=== PATIENT | female | born 1940 | race Caucasian/White ===

== ENCOUNTER 2017-05-07 17:16 | Inpatient (IN) | payer MEDICARE, OTHER ==
[2017-05-07] VITALS (7 sets, daily range): BP systolic 150–184; BP diastolic 67–100; PULSE 98–111; RESP 16–20; TEMP 97.9–98; O2SAT 91–96
[~2017-05-07] VITALS: Ht 170.2 cm; Wt 86.5 kg
[~2017-05-07 17:16] MED LIST: BENA5TAB PO; LATA0.00 EACH EYE; LYRI150C PO; METF850T PO; PRAV40TA PO
--- NOTE | 2017-05-07 17:44 | PD ---
HPI Chief Complaint: Respiratory Symptoms Time Seen by Provider: 17:39 Travel History International Travel<30 days: No Contact w/Intl Traveler<30days: No Traveled to known affect area: No History of Present Illness HPI 76yo F with PMH of fibromyalgia, DM was sent here by GI Dr. Pathak for CXR to r/ o aspiration. Pt was having a colonoscopy and was told that they were suctioning her in her OR. She also has cough, sob after the surgery. Pt was given levaquin, solucortef, and albuterol treatment there. Pt denies any history of COPD or cig smoking. Said she had a cold 2 weeks ago but symptoms were improved. Denies any fever, chest pain, n/v, abdominal pain. PFSH Past Medical History Cancer: No Cardiovascular Problems: Yes (LEAKY HEART VALVE) Diabetes: Yes Diminished Hearing: No Fibromyalgia: Yes GERD: Yes Glaucoma: Yes Genitourinary: Yes (INSTITIAL CYSTITIS) Hepatitis: No Hiatal Hernia: Yes (GERD) Musculoskeletal: Yes (OSTEOPHOROSIS) Thyroid Disease: No ?: Not Past Surgical History Abdominal Surgery: Yes ("GERD SX") Appendectomy: Yes (POSSIBLY WITH HYSTERECTOMY) Cardiac Surgery: No Ear Surgery: No Endocrine Surgery: No Eye Surgery: Yes (DANDY EYE SX - MUSCLE SX ; LEFT EYE CATARACT SX) Genitourinary Surgery: No Gynecologic Surgery: Yes (D&C HYSTERECTOMY) Hysterectomy: Yes Oral Surgery: No Pacemaker: No Thoracic Surgery: No Other Surgery: Yes (TUMOR FROM SKULL AREA) Social History Alcohol Use: Yes (BEER OCCASIONALLY) Tobacco Use: No Substance Use: No Allergies-Medications (Allergen,Severity, Reaction): Coded Allergies: hydrocodone (Unverified Allergy, Severe, Tachycardia, 05/07/17) SEVERE TACHYCARDIA AND "JITTERY" FEELING ibandronate sodium (Unverified Adverse Reaction, Severe, VOMITS SEVERELY, 05/07/17) Reported Meds & Prescriptions Reported Meds & Active Scripts Active Reported Dorzolamide Opth Drops (Dorzolamide HCl) 2% Soln 1 Drop EACH EYE BID Latanoprost Opth Drops (Latanoprost) 0.005% Drops 1 Drop EACH EYE HS Refrigerate until opened. Januvia (Sitagliptin Phosphate) 100 Mg Tab 100 Mg PO DAILY Review of Systems Except as stated in HPI: all other systems reviewed are Neg Physical Exam Narrative GENERAL: 76yo F in mild distress. SKIN: Focused skin assessment warm/dry. HEAD: Atraumatic. Normocephalic. EYES: Pupils equal and round. No scleral icterus. No injection or drainage. ENT: No nasal bleeding or discharge. Mucous membranes pink and moist. NECK: Trachea midline. No JVD. CARDIOVASCULAR: Regular rate and rhythm. No murmur appreciated. RESPIRATORY: Bilateral crackles in lung bases. GASTROINTESTINAL: Abdomen soft, non-tender, nondistended. No rebound tenderness or guarding. MUSCULOSKELETAL: No obvious deformities. No clubbing. No cyanosis. No edema. NEUROLOGICAL: Awake and alert. No obvious cranial nerve deficits. Motor grossly within normal limits. Normal speech. PSYCHIATRIC: Appropriate mood and affect; insight and judgment normal. Data Data Last Documented VS Vital Signs Date Time Temp Pulse Resp B/P (MAP) Pulse Ox O2 Delivery O2 Flow Rate FiO2 05/07/17 19:00 111 18 150/67 (94) 93 Nasal Cannula 2.00 05/07/17 17:21 97.9 Orders Orders Complete Blood Count With Diff (05/07/17 17:39) Basic Metabolic Panel (Bmp) (05/07/17 17:39) Troponin I (05/07/17 17:39) Chest, Single Ap (05/07/17 17:39) B-Type Natriuretic Peptide (05/07/17 17:44) Arterial Blood Gas (Abg) (05/07/17 ) Albuterol-Ipratropium Neb (Duoneb Neb) (05/07/17 18:30) Sodium Chlorid 0.9% 500 Ml Inj (Ns 500 M (05/07/17 19:00) Ceftriaxone Inj (Rocephin Inj) (05/07/17 19:00) Azithromycin (Zithromax) (05/07/17 19:00) Admit Order (Ed Use Only) (05/07/17 19:24) Labs Laboratory Tests Test 05/07/17 18:00 05/07/17 18:44 White Blood Count 20.3 TH/MM3 Red Blood Count 5.18 MIL/MM3 Hemoglobin 14.9 GM/DL Hematocrit 45.3 % Mean Corpuscular Volume 87.5 FL Mean Corpuscular Hemoglobin 28.7 PG Mean Corpuscular Hemoglobin Concent 32.8 % Red Cell Distribution Width 12.5 % Platelet Count 329 TH/MM3 Mean Platelet Volume 7.9 FL Neutrophils (%) (Auto) 88.0 % Lymphocytes (%) (Auto) 5.5 % Monocytes (%) (Auto) 3.0 % Eosinophils (%) (Auto) 0.2 % Basophils (%) (Auto) 3.3 % Neutrophils # (Auto) 17.9 TH/MM3 Lymphocytes # (Auto) 1.1 TH/MM3 Monocytes # (Auto) 0.6 TH/MM3 Eosinophils # (Auto) 0.0 TH/MM3 Basophils # (Auto) 0.7 TH/MM3 CBC Comment DIFF FINAL Differential Comment Blood Urea Nitrogen 13 MG/DL Creatinine 0.73 MG/DL Random Glucose 186 MG/DL Calcium Level 8.3 MG/DL Sodium Level 137 MEQ/L Potassium Level 3.5 MEQ/L Chloride Level 103 MEQ/L Carbon Dioxide Level 22.9 MEQ/L Anion Gap 11 MEQ/L Estimat Glomerular Filtration Rate 77 ML/MIN Troponin I LESS THAN 0.02 NG/ML B-Type Natriuretic Peptide 3 PG/ML Blood Gas Puncture Site LT RADIAL Blood Gas Patient Temperature 98.6 Blood Gas HCO3 21 mmol/L Blood Gas Base Excess -2.7 mmol/L Blood Gas Oxygen Saturation 88 % Arterial Blood pH 7.41 Arterial Blood Partial Pressure CO2 35 mmHG Arterial Blood Partial Pressure O2 65 mmHG Arterial Blood Oxygen Content 18.0 Vol % Arterial Blood Carboxyhemoglobin 1.4 % Arterial Blood Methemoglobin 1.2 % Blood Gas Hemoglobin 14.5 G/DL Oxygen Delivery Device ROOM AIR Blood Gas Inspired Oxygen 21 % [facility] Medical Decision Making Medical Screen Exam Complete: Yes Emergency Medical Condition: Yes Differential Diagnosis Aspiration pneumonia vs. COPD vs. CHF vs. ACS Narrative Course 76yo F with c/o sob and cough after colonoscopy today. Said they were suctioning and was concern about aspiration. Pt is hypoxic at 89-90% on RA and said she does not use any oxygen at home. Does not have COPD but did get a pump when she had a cold 2 weeks ago. O2 sat improved to 94% on 2L NC. Crackles in bilateral lung bases. CXR shows clear lungs. Labs reviewed, leukocytosis at 20.3. BNP is 3. Troponin negative. Pt is also with productive cough and mild tachycardia, will give ceftriaxone and azithromycin. ABG showed O2 sat 88% on RA. This is new for patient. Discussed with Dr. Miller's PA and accepted to her service. Diagnosis Primary Impression: Aspiration pneumonia Qualified Codes: J69.0 - Pneumonitis due to inhalation of food and vomit Admitting Information Admitting Physician Requests: Observation Gricelda Childs DO May 07, 2017 17:44
[2017-05-07] MEDS ORDERED: LATA0.002 EACH EYE (17:50)
[2017-05-07] MEDS ORDERED: SITA1TAB2 PO (17:50)
[2017-05-07] MEDS ORDERED: DORZ2SOL EACH EYE (18:08)
[2017-05-07 18:18] LABS: AUTOMATED NEUTROPHIL # 17.9 TH/MM3 (1.8-7.7); BASOPHIL # 0.7 TH/MM3 (0-0.2); BASOPHIL % 3.3 % (0.0-2.0); EOSINOPHIL % 0.2 % (0.0-4.0); HEMATOCRIT 45.3 % (35.0-46.0); HEMOGLOBIN 14.9 GM/DL (11.6-15.3); LYMPH % 5.5 % (9.0-44.0); LYMPHOCYTE # 1.1 TH/MM3 (1.0-4.8); MEAN CELL VOLUME 87.5 FL (80.0-100.0); MEAN CORPUSCULAR HEMOGLOBIN 28.7 PG (27.0-34.0); MEAN CORPUSCULAR HGB CONC 32.8 % (32.0-36.0); MEAN PLATELET VOLUME 7.9 FL (7.0-11.0); MONOCYTE # 0.6 TH/MM3 (0-0.9); PLATELET COUNT 329 TH/MM3 (150-450); RED BLOOD COUNT 5.18 MIL/MM3 (4.00-5.30); RED CELL DISTRIBUTION WIDTH 12.5 % (11.6-17.2); WHITE BLOOD COUNT 20.3 TH/MM3 (4.0-11.0)
--- NOTE | 2017-05-07 18:22 | RADRPT ---
EXAM DATE/TIME: 05/07/2017 18:06 [place] COMPARISON: No previous studies available for comparison. INDICATIONS : Chest congestion, difficulty breathing post colonoscopy this morning MEDICAL HISTORY : None. SURGICAL HISTORY : None. ENCOUNTER: Initial ACUITY: 1 day PAIN SCORE: 0/10 LOCATION: Bilateral chest FINDINGS: A single view of the chest demonstrates the lungs to be symmetrically aerated without evidence of mas s, infiltrate or effusion. The cardiomediastinal contours are unremarkable. Mild elevation of the l eft hemidiaphragm. Moderate right lower thoracic scoliosis convex to the right. CONCLUSION: The lungs are clear. Harman Workman MD on May 07, 2017 at 18:19 Board Certified Radiologist. This report was verified electronically.
[2017-05-07 18:25] LABS: CHLORIDE 103 MEQ/L (98-107); SODIUM (NA) 137 MEQ/L (136-145)
[2017-05-07 18:28] LABS: BICARBONATE 22.9 MEQ/L (21.0-32.0); BLOOD UREA NITROGEN 13 MG/DL (7-18); CALCIUM 8.3 MG/DL (8.5-10.1); GLUCOSE,RANDOM 186 MG/DL (74-106)
[2017-05-07 18:32] LABS: CREATININE 0.73 MG/DL (0.50-1.00); GLOMERULAR FILTRATION RATE 77 ML/MIN (>89)
[2017-05-07 18:36] LABS: TROPONIN I LESS THAN 0.02 NG/ML (0.02-0.05)
[2017-05-07] MEDS: RESP: ALBUTEROL 2.5 MG/IPRATROPIUM 0.5 MG NEB (SCH) INH ×2 (18:43→21:48)
[2017-05-07] MEDS ORDERED: cefTRIAXone INJ 1,000 MG in SODIUM CHLORIDE 0.9% INJ 100 ML IV ONE (19:00)
[2017-05-07] MEDS ORDERED: AZITHROMYCIN 250 MG TAB PO ONE (19:00)
[2017-05-07] MEDS ORDERED: SODIUM CHLORID 0.9% 500 ML INJ 500 ML IV ONE (19:00)
[2017-05-07] MEDS ORDERED: SODIUM CHLORIDE 0.9% FLUSH 10 ML FLUSH IV FLUSH PRN (19:30)
[2017-05-07] MEDS ORDERED: RESP: ALBUTEROL 2.5 MG/IPRATROPIUM 0.5 MG NEB (PRN) INH (19:30)
[2017-05-07] MEDS ORDERED: DEXTROSE 50% IN WATER 50 ML VIAL(D50) IV PUSH PRN (19:30)
[2017-05-07] MEDS ORDERED: GLUCAGON 1 MG/ML VIAL OTHER PRN (19:30)
[2017-05-07] MEDS: INSULIN ASPART SUPPLEMENTAL SCALE SQ SCH (21:00)
[2017-05-07] MEDS: AMPICILLIN-SULBACTAM INJ 3 GM in SODIUM CHLORIDE 0.9% INJ 100 ML IV SCH (22:03)
[2017-05-07] MEDS: SODIUM CHLORIDE 0.9% FLUSH 10 ML FLUSH IV FLUSH SCH (22:03)
[2017-05-07] MEDS: ENOXAPARIN SODIUM 40 MG/0.4 ML SYRINGE SQ SCH (22:04)
[2017-05-07] MEDS: DORZOLAMIDE 2% OPTH SOLN 200 DROP/10 ML BTLO EACH EYE SCH (22:41)
[2017-05-07] MEDS: LATANOPROST 0.005% OPHT SOLN 2.5 ML BTL EACH EYE SCH (22:41)
[2017-05-08] VITALS (8 sets, daily range): BP systolic 129–143; BP diastolic 56–65; PULSE 82–110; RESP 18–20; TEMP 96.8–99.4; O2SAT 92–96
[2017-05-08] MEDS: AMPICILLIN-SULBACTAM INJ 3 GM in SODIUM CHLORIDE 0.9% INJ 100 ML IV SCH ×4 (03:49→21:08)
[2017-05-08] MEDS: RESP: ALBUTEROL 2.5 MG/IPRATROPIUM 0.5 MG NEB (SCH) INH ×4 (03:56→19:09)
[2017-05-08 07:56] LABS: AUTOMATED NEUTROPHIL # 13.5 TH/MM3 (1.8-7.7); BASOPHIL % 0.2 % (0.0-2.0); EOSINOPHIL % 0.2 % (0.0-4.0); HEMATOCRIT 38.2 % (35.0-46.0); HEMOGLOBIN 13.1 GM/DL (11.6-15.3); LYMPHOCYTE # 1.6 TH/MM3 (1.0-4.8); MEAN CELL VOLUME 87.3 FL (80.0-100.0); MEAN CORPUSCULAR HEMOGLOBIN 29.9 PG (27.0-34.0); MEAN CORPUSCULAR HGB CONC 34.2 % (32.0-36.0); MEAN PLATELET VOLUME 7.8 FL (7.0-11.0); MONO % 4.4 % (0.0-8.0); MONOCYTE # 0.7 TH/MM3 (0-0.9); NEUT % 85.2 % (16.0-70.0); PLATELET COUNT 284 TH/MM3 (150-450); RED BLOOD COUNT 4.38 MIL/MM3 (4.00-5.30); WHITE BLOOD COUNT 15.8 TH/MM3 (4.0-11.0)
[2017-05-08 07:58] LABS: BICARBONATE 26.6 MEQ/L (21.0-32.0); CALCIUM 7.9 MG/DL (8.5-10.1)
[2017-05-08 08:02] LABS: CREATININE 0.86 MG/DL (0.50-1.00)
[2017-05-08] MEDS: INSULIN ASPART SUPPLEMENTAL SCALE SQ SCH ×4 (09:36→21:00)
[2017-05-08] MEDS: DORZOLAMIDE 2% OPTH SOLN 200 DROP/10 ML BTLO EACH EYE SCH ×2 (09:49→21:09)
[2017-05-08] MEDS: SODIUM CHLORIDE 0.9% FLUSH 10 ML FLUSH IV FLUSH SCH ×2 (09:52→21:09)
--- NOTE | 2017-05-08 12:06 | HHI.HP ---
HPI Service [facility] Primary Care Physician Brian Faria, DO Admission Diagnosis Possible aspiration pneumonia, hypoxemia Diagnoses: Chief Complaint: Aspiration Travel History International Travel<30 Days: No Contact w/Intl Traveler <30 Da: No Traveled to Known Affected Are: No History of Present Illness 76 years old female with history of fibromyalgia diabetes mellitus who followed by her GI doctor Dr. Echevarria , was having a colonoscopy during which or right after she was found to have extensive oral secretion there were trying to suction in the OR however patient went into coughing spells short of breath and hypoxia. Patient told me when she was leaving the operating room her face her left shoulder was full of snot and secretion. Patient brought to the hospital with suspect of aspiration started on breathing treatment and oxygen her oxygenation went below 88. Patient reported having cold symptoms 2 weeks ago however denied any fever chest pain abdominal pain dysuria urgency or frequency. She is looks to be stable on nasal cannula right now, chest x-ray in the ED showed normal lungs. Patient started on Unasyn after given a dose of Levaquin in ED Review of Systems All systems reviewed and was positive for what is mentioned in history of present illness otherwise negative Past Family Social History Past Medical History History of leaky heart valve assuming MDP Diabetes GERD Glaucoma Cystitis Osteoporosis Hysterectomy Cataract left eye Past Surgical History As above Allergies: Coded Allergies: hydrocodone (Unverified Allergy, Severe, Tachycardia, 05/07/17) SEVERE TACHYCARDIA AND "JITTERY" FEELING ibandronate sodium (Unverified Adverse Reaction, Severe, VOMITS SEVERELY, 05/07/17) Family History Review with the patient,not aware of significant medical history related to her problem runs in the family Social History Drinks beer occasionally no tobacco or Physical Exam Vital Signs Vital Signs Date Time Temp Pulse Resp B/P (MAP) Pulse Ox O2 Delivery O2 Flow Rate FiO2 05/08/17 07:50 96.8 96 20 129/56 (80) 93 05/08/17 07:43 95 Nasal Cannula 2.00 05/08/17 03:56 96 Nasal Cannula 2.00 05/08/17 00:00 98.5 110 20 143/65 (91) 92 05/07/17 21:48 93 Nasal Cannula 2.50 05/07/17 21:00 92 Nasal Cannula 2.50 05/07/17 20:50 98.0 107 20 164/74 (104) 92 05/07/17 20:35 107 18 168/73 (104) 92 Nasal Cannula 3.00 05/07/17 19:00 111 18 150/67 (94) 93 Nasal Cannula 2.00 05/07/17 19:00 111 18 93 Nasal Cannula 2.00 05/07/17 18:45 96 Nasal Cannula 2.00 05/07/17 18:07 100 16 184/100 (128) 95 Nasal Cannula 2.00 05/07/17 17:44 99 16 92 Room Air 05/07/17 17:21 97.9 98 18 160/74 (102) 91 Physical Exam GENERAL: This is a well-nourished, well-developed patient, in no apparent distress. SKIN: No rashes, warm and dry HEAD: Atraumatic. Normocephalic. EYES: Pupils equal round and reactive. Extraocular motions intact. No scleral icterus. ENT: Nose without bleeding, or drainage, Airway patent. NECK: Trachea midline. Supple CARDIOVASCULAR: Regular rate and rhythm without murmurs, gallops, or rubs. RESPIRATORY: Bilateral basilar crackles with few wheezes bilaterally GASTROINTESTINAL: Abdomen soft, non-tender, nondistended. Positive bowel sounds MUSCULOSKELETAL: Extremities without clubbing, cyanosis, or edema. Pedal pulses appreciated NEUROLOGICAL: Awake and alert. Moves all extremity. Normal speech.no focal neurological deficit Laboratory Laboratory Tests Test 05/07/17 18:00 05/07/17 18:44 05/08/17 06:50 White Blood Count 20.3 15.8 Red Blood Count 5.18 4.38 Hemoglobin 14.9 13.1 Hematocrit 45.3 38.2 Mean Corpuscular Volume 87.5 87.3 Mean Corpuscular Hemoglobin 28.7 29.9 Mean Corpuscular Hemoglobin Concent 32.8 34.2 Red Cell Distribution Width 12.5 13.0 Platelet Count 329 284 Mean Platelet Volume 7.9 7.8 Neutrophils (%) (Auto) 88.0 85.2 Lymphocytes (%) (Auto) 5.5 10.0 Monocytes (%) (Auto) 3.0 4.4 Eosinophils (%) (Auto) 0.2 0.2 Basophils (%) (Auto) 3.3 0.2 Neutrophils # (Auto) 17.9 13.5 Lymphocytes # (Auto) 1.1 1.6 Monocytes # (Auto) 0.6 0.7 Eosinophils # (Auto) 0.0 0.0 Basophils # (Auto) 0.7 0.0 CBC Comment DIFF FINAL DIFF FINAL Differential Comment Blood Urea Nitrogen 13 10 Creatinine 0.73 0.86 Random Glucose 186 211 Calcium Level 8.3 7.9 Sodium Level 137 141 Potassium Level 3.5 3.3 Chloride Level 103 107 Carbon Dioxide Level 22.9 26.6 Anion Gap 11 7 Estimat Glomerular Filtration Rate 77 64 Troponin I LESS THAN 0.02 B-Type Natriuretic Peptide 3 Blood Gas Puncture Site LT RADIAL Blood Gas Patient Temperature 98.6 Blood Gas HCO3 21 Blood Gas Base Excess -2.7 Blood Gas Oxygen Saturation 88 Arterial Blood pH 7.41 Arterial Blood Partial Pressure CO2 35 Arterial Blood Partial Pressure O2 65 Arterial Blood Oxygen Content 18.0 Arterial Blood Carboxyhemoglobin 1.4 Arterial Blood Methemoglobin 1.2 Blood Gas Hemoglobin 14.5 Oxygen Delivery Device ROOM AIR Blood Gas Inspired Oxygen 21 Result Diagram: 05/08/17 0650 05/08/17 0650 Imaging Last Impressions Chest X-Ray 05/07/17 4349 Signed Impressions: Service Date/Time: Sunday, May 07, 2017 18:06 - CONCLUSION: The lungs are clear. MD Peter Cash VTE Risk Assessment Caprini VTE Risk Assessment: Mod/High Risk (score >= 2) Caprini Risk Assessment Model Point Value = 1 Point Value = 2 Point Value = 3 Point Value = 5 Age 41-60 Minor surgery BMI > 25 kg/m2 Swollen legs Varicose veins or History of unexplained or recurrent spontaneous Oral contraceptives or hormone replacement Sepsis (< 1 month) Serious lung disease, including pneumonia (< 1 month) Abnormal pulmonary function Acute myocardial infarction Congestive heart failure (< 1 month) History of inflammatory bowel disease Medical patient at bed rest Age 61-74 Arthroscopic surgery Major open surgery (> 45 min) Laparoscopic surgery (> 45 min) Malignancy Confined to bed (> 72 hours) Immobilizing plaster cast Central venous access Age >= 75 History of VTE Family history of VTE Factor V Leiden Prothrombin [id number] Lupus anticoagulant Anticardiolipin antibodies Elevated serum homocysteine Heparin-induced thrombocytopenia Other congenital or acquired thrombophilia Stroke (< 1 month) Elective arthroplasty Hip, pelvis, or leg fracture Acute spinal cord injury (< 1 month) Prophylaxis Regimen Total Risk Factor Score Risk Level Prophylaxis Regimen 0-1 Low Early ambulation 2 Moderate Order ONE of the following: *Sequential Compression Device (SCD) *Heparin 5000 units SQ BID 3-4 Higher Order ONE of the following medications: *Heparin 5000 units SQ TID *Enoxaparin/Lovenox 40 mg SQ daily (WT < 150 kg, CrCl > 30 mL/min) *Enoxaparin/Lovenox 30 mg SQ daily (WT < 150 kg, CrCl > 10-29 mL/min) *Enoxaparin/Lovenox 30 mg SQ BID (WT < 150 kg, CrCl > 30 mL/min) AND/OR *Sequential Compression Device (SCD) 5 or more Highest Order ONE of the following medications: *Heparin 5000 units SQ TID (Preferred with Epidurals) *Enoxaparin/Lovenox 40 mg SQ daily (WT < 150 kg, CrCl > 30 mL/min) *Enoxaparin/Lovenox 30 mg SQ daily (WT < 150 kg, CrCl > 10-29 mL/min) *Enoxaparin/Lovenox 30 mg SQ BID (WT < 150 kg, CrCl > 30 mL/min) AND *Sequential Compression Device (SCD) Assessment and Plan Assessment and Plan 76 years old female with history of diabetes mellitus who was under colonoscopy procedure transferred to the hospital after she had Acute aspiration episode with hypoxia Chest x-ray personally reviewed by me and it was cleared Severe leukocytosis with 20,000 yesterday dropped to 15,000 today could be stress reaction H/O Diabetes mellitus GERD, osteoporosis, glaucoma DT prophylaxis with SCD and Lovenox Plan: Admit for observation Telemetry Patient was given a dose of Rocephin and Zithromax, will start on Unasyn Monitor her respiratory symptoms and her oxygenation Monitor WBC Continue with oxygen, DuoNeb, patient reported feeling better with breathing treatment Solu-Medrol was given will continue Discussed Condition With Patient Angelo Quintanilla MD May 08, 2017 12:06
[2017-05-08] MEDS: LATANOPROST 0.005% OPHT SOLN 2.5 ML BTL EACH EYE SCH (21:09)
[2017-05-08] MEDS: ENOXAPARIN SODIUM 40 MG/0.4 ML SYRINGE SQ SCH (21:10)
[2017-05-09] VITALS: BP 120/60; PULSE 88; RESP 16; TEMP 97.8; O2SAT 94
[2017-05-09] MEDS: AMPICILLIN-SULBACTAM INJ 3 GM in SODIUM CHLORIDE 0.9% INJ 100 ML IV SCH ×4 (03:25→20:40)
[2017-05-09 07:18] LABS: AUTOMATED NEUTROPHIL # 7.1 TH/MM3 (1.8-7.7); BASOPHIL # 0.1 TH/MM3 (0-0.2); BASOPHIL % 0.6 % (0.0-2.0); EOSINOPHIL # 0.3 TH/MM3 (0-0.4); EOSINOPHIL % 3.1 % (0.0-4.0); HEMATOCRIT 36.2 % (35.0-46.0); HEMOGLOBIN 12.1 GM/DL (11.6-15.3); LYMPH % 13.5 % (9.0-44.0); LYMPHOCYTE # 1.3 TH/MM3 (1.0-4.8); MEAN CELL VOLUME 88.3 FL (80.0-100.0); MEAN CORPUSCULAR HEMOGLOBIN 29.5 PG (27.0-34.0); MEAN CORPUSCULAR HGB CONC 33.3 % (32.0-36.0); MEAN PLATELET VOLUME 7.6 FL (7.0-11.0); MONO % 5.5 % (0.0-8.0); MONOCYTE # 0.5 TH/MM3 (0-0.9); NEUT % 77.3 % (16.0-70.0); PLATELET COUNT 262 TH/MM3 (150-450); RED CELL DISTRIBUTION WIDTH 13.4 % (11.6-17.2); WHITE BLOOD COUNT 9.3 TH/MM3 (4.0-11.0)
[2017-05-09] MEDS: RESP: ALBUTEROL 2.5 MG/IPRATROPIUM 0.5 MG NEB (SCH) INH ×3 (07:47→20:01)
[2017-05-09 07:49] VITALS: O2SAT 94
[2017-05-09 08:00] VITALS: BP 149/75; PULSE 92; RESP 20; TEMP 97.3; O2SAT 93
[2017-05-09] MEDS: INSULIN ASPART SUPPLEMENTAL SCALE SQ SCH ×4 (08:00→20:41)
[2017-05-09] MEDS: DORZOLAMIDE 2% OPTH SOLN 200 DROP/10 ML BTLO EACH EYE SCH ×2 (08:41→20:40)
[2017-05-09] MEDS: SODIUM CHLORIDE 0.9% FLUSH 10 ML FLUSH IV FLUSH SCH ×2 (08:43→20:40)
--- NOTE | 2017-05-09 10:54 | HHI.PR ---
Subjective Remarks RN denies any deterioration since last night except for a sustained wet cough. Patient herself says that she feels like her voice hoarseness is worse today and she is very short of breath when speaking. Otherwise will not conversing, she is not that short of breath. She denies having any previous thyroid issues or any neck surgeries in the past. Objective Vital Signs Date Time Temp Pulse Resp B/P (MAP) Pulse Ox O2 Delivery O2 Flow Rate FiO2 05/09/17 08:30 Nasal Cannula 2.00 05/09/17 08:00 97.3 92 20 149/75 (99) 93 05/09/17 00:00 97.8 88 16 120/60 (80) 94 05/08/17 20:00 99.4 104 20 133/60 (84) 92 05/08/17 20:00 92 Nasal Cannula 2.00 05/08/17 19:09 93 Nasal Cannula 2.00 05/08/17 16:38 97.7 102 18 136/63 (87) 92 05/08/17 11:00 97.3 82 20 129/59 (82) 95 I/O 05/08/17 05/08/17 05/08/17 05/09/17 05/09/17 05/09/17 07:00 15:00 23:00 07:00 15:00 23:00 Intake Total 100 ml 200 ml 1784 ml 340 ml Balance 100 ml 200 ml 1784 ml 340 ml Intake Oral 1684 ml 240 ml IV Total 100 ml 200 ml 100 ml 100 ml # Voids 5 5 # Bowel Movements 1 0 Result Diagram: 05/09/17 0647 05/08/17 0650 Objective Remarks Mild crackles in left lung base anteriorly, unlabored breathing, has very obvious voice hoarseness and conversive dyspnea, no significant dyspnea upon rest A/P Assessment and Plan 76 years old female with history of diabetes mellitus who was under colonoscopy procedure transferred to the hospital after she had sudden onset dyspnea and suspected aspiration Suspected aspiration episode with hypoxia following colonoscopy procedure -Chest x-rays was negative upon admission. Leukocytosis has been normalized. Continue Unasyn for now Worsening voice hoarseness -We will consult ENT to evaluate vocal cords - starting PPI and consulting ST for swallow Micheal Conde MD May 09, 2017 10:53
[2017-05-09] MEDS: PANTOPRAZOLE SOD 40 MG DELAYED RELEASE TAB PO SCH (11:46)
[2017-05-09 12:00] VITALS: BP 154/74; PULSE 91; RESP 20; TEMP 98.7; O2SAT 94
--- NOTE | 2017-05-09 17:20 | PD.CONS ---
History of Present Illness Service ENT Consult Requested By Reason for Consult Hoarseness Primary Care Physician Brian Faria DO Diagnoses: History of Present Illness 76 year old female post colonoscopy apparently aspirated. She is hoarse. She has been coughing and is being treated for pneumonia. Review of Systems Ears, nose, mouth, throat: COMPLAINS OF: Hoarseness, DENIES: Nasal discharge, Throat pain, Odynophagia Past Family Social History Allergies: Coded Allergies: hydrocodone (Unverified Allergy, Severe, Tachycardia, 05/07/17) SEVERE TACHYCARDIA AND "JITTERY" FEELING ibandronate sodium (Unverified Adverse Reaction, Severe, VOMITS SEVERELY, 05/07/17) Physical Exam Vital Signs Vital Signs Date Time Temp Pulse Resp B/P (MAP) Pulse Ox O2 Delivery O2 Flow Rate FiO2 05/09/17 12:00 98.7 91 20 154/74 (100) 94 05/09/17 08:30 Nasal Cannula 2.00 05/09/17 08:00 97.3 92 20 149/75 (99) 93 05/09/17 07:49 94 Nasal Cannula 2.00 05/09/17 00:00 97.8 88 16 120/60 (80) 94 05/08/17 20:00 99.4 104 20 133/60 (84) 92 05/08/17 20:00 92 Nasal Cannula 2.00 05/08/17 19:09 93 Nasal Cannula 2.00 Physical Exam GENERAL: This is a well-nourished, well-developed patient, in no apparent distress. SKIN: No rashes, ecchymoses or lesions. Cool and dry. HEAD: Atraumatic. Normocephalic. No temporal or scalp tenderness. EYES: Pupils equal round and reactive. Extraocular motions intact. No scleral icterus. No injection or drainage. ENT: Nose without bleeding, purulent drainage or septal hematoma. Throat without erythema, tonsillar hypertrophy or exudate. Uvula midline. Airway patent. NECK: Trachea midline. No JVD or lymphadenopathy. Supple, nontender, no meningeal signs. Fiberoptic laryngoscopy: Mild laryngeal edema. Vocal cords mobile. Palatal bruising suctioning likely. Laboratory Laboratory Tests Test 05/09/17 06:47 White Blood Count 9.3 Red Blood Count 4.10 Hemoglobin 12.1 Hematocrit 36.2 Mean Corpuscular Volume 88.3 Mean Corpuscular Hemoglobin 29.5 Mean Corpuscular Hemoglobin Concent 33.3 Red Cell Distribution Width 13.4 Platelet Count 262 Mean Platelet Volume 7.6 Neutrophils (%) (Auto) 77.3 Lymphocytes (%) (Auto) 13.5 Monocytes (%) (Auto) 5.5 Eosinophils (%) (Auto) 3.1 Basophils (%) (Auto) 0.6 Neutrophils # (Auto) 7.1 Lymphocytes # (Auto) 1.3 Monocytes # (Auto) 0.5 Eosinophils # (Auto) 0.3 Basophils # (Auto) 0.1 CBC Comment DIFF FINAL Differential Comment Result Diagram: 05/09/17 0647 05/08/17 0650 Assessment and Plan Assessment and Plan Laryngitis and hoarseness post aspiration, from acid contents, suctioning and cough. Patient reassured, it will be some time before she is better. Priority now is clearing pneumonia. I stressed inspiratory spirometer and cough. Request follow up at [facility] as an outpatient with Dr Rangel in the next few weeks to be sure she clears. Jayesh Rangel MD May 09, 2017 17:20
[2017-05-09 20:00] VITALS: BP 163/76; PULSE 103; RESP 18; TEMP 99.3; O2SAT 93
[2017-05-09 20:04] VITALS: O2SAT 94
[2017-05-09] MEDS: LATANOPROST 0.005% OPHT SOLN 2.5 ML BTL EACH EYE SCH (20:40)
[2017-05-09] MEDS: ENOXAPARIN SODIUM 40 MG/0.4 ML SYRINGE SQ SCH (20:41)
[2017-05-10] VITALS (11 sets, daily range): BP systolic 137–173; BP diastolic 70–78; PULSE 80–102; RESP 18–20; TEMP 97.2–99.3; O2SAT 93–98
[2017-05-10] MEDS: AMPICILLIN-SULBACTAM INJ 3 GM in SODIUM CHLORIDE 0.9% INJ 100 ML IV SCH ×4 (05:03→21:00)
[2017-05-10] MEDS: RESP: ALBUTEROL 2.5 MG/IPRATROPIUM 0.5 MG NEB (SCH) INH ×3 (07:39→20:05)
[2017-05-10] MEDS: INSULIN ASPART SUPPLEMENTAL SCALE SQ SCH ×4 (08:00→21:00)
[2017-05-10] MEDS: PANTOPRAZOLE SOD 40 MG DELAYED RELEASE TAB PO SCH (09:24)
[2017-05-10] MEDS: DORZOLAMIDE 2% OPTH SOLN 200 DROP/10 ML BTLO EACH EYE SCH ×2 (09:24→22:59)
[2017-05-10] MEDS: SODIUM CHLORIDE 0.9% FLUSH 10 ML FLUSH IV FLUSH SCH ×2 (09:24→22:58)
[2017-05-10] MEDS: LISINOPRIL 5 MG TAB PO SCH ×2 (10:00→10:31)
--- NOTE | 2017-05-10 10:04 | HHI.PR ---
Subjective Remarks Patient still coughing significantly, she reported light improvement in her breathing, she told me "I do not think I can go home unless I need to " We will check her home O2 while in test and if she passed wound and try to discharge home so she can follow-up as an outpatient otherwise we will keep her for 1 more day prednisone and antibiotic Objective Vitals Vital Signs Date Time Temp Pulse Resp B/P (MAP) Pulse Ox O2 Delivery O2 Flow Rate FiO2 05/10/17 07:32 95 Nasal Cannula 2.00 05/10/17 05:53 92 05/10/17 04:00 98.2 88 18 173/70 (104) 93 05/10/17 00:00 99.3 99 20 154/75 (101) 94 05/09/17 20:04 94 Nasal Cannula 2.00 05/09/17 20:00 99.3 103 18 163/76 (105) 93 05/09/17 19:00 Nasal Cannula 2.00 05/09/17 12:00 98.7 91 20 154/74 (100) 94 I/O 05/09/17 05/09/17 05/09/17 05/10/17 05/10/17 05/10/17 07:00 15:00 23:00 07:00 15:00 23:00 Intake Total 340 ml 100 ml 200 ml 680 ml Balance 340 ml 100 ml 200 ml 680 ml Intake Oral 240 ml 0 ml 480 ml IV Total 100 ml 100 ml 200 ml 200 ml # Voids 5 6 5 # Bowel Movements 0 0 Result Diagram: 05/09/17 0647 05/08/17 0650 Objective Remarks GENERAL: This is a well-nourished, well-developed patient, in no apparent distress. CARDIOVASCULAR: Regular rate and rhythm without murmurs, gallops, or rubs. RESPIRATORY: Significant bilateral basilar crackles with wheezes GASTROINTESTINAL: Abdomen soft, non-tender, nondistended. Normal active bowel sounds MUSCULOSKELETAL: Extremities without clubbing, cyanosis, or edema. NEURO: Alert & Oriented x4 to person, place, time, situation. Moves all ext x4 A/P Assessment and Plan 76 years old female with history of diabetes mellitus who was under colonoscopy procedure transferred to the hospital after she had sudden onset dyspnea and suspected aspiration Suspected aspiration episode with hypoxia following colonoscopy procedure -Chest x-rays was negative upon admission. Leukocytosis has been normalized. Continue Unasyn for now Laryngitis, worsening voice hoarseness -Appreciate ENT consultation, confirmed laryngitis due to acid secretion will take time to heal - starting PPI and consulting ST for swallow eval Hypertension: Patient is not on any antihypertensive medication will start low- dose 5 mg lisinopril and monitor blood pressure Diabetes mellitus: Hold sitagliptin, Accu-Chek with insulin sliding scale DVT prophylaxis with SCD and Lovenox Discharge Planning Today or tomorrow pending home O2 walking test Angelo Quintanilla MD May 10, 2017 10:04
[2017-05-10] MEDS ORDERED: LISI-519 PO (12:31)
[2017-05-10] MEDS ORDERED: LEVA750T9 PO (12:31)
[2017-05-10] MEDS ORDERED: PRED5PAK PO (12:31)
[2017-05-10] MEDS ORDERED: methylPREDNISolone SOD SUCC 125 MG/2 ML VIAL IV PUSH ONE (13:00)
[2017-05-10] MEDS: ENOXAPARIN SODIUM 40 MG/0.4 ML SYRINGE SQ SCH (21:00)
[2017-05-10] MEDS: LATANOPROST 0.005% OPHT SOLN 2.5 ML BTL EACH EYE SCH (22:59)
[2017-05-11] VITALS (10 sets, daily range): BP systolic 139–176; BP diastolic 69–85; PULSE 73–101; RESP 17–18; TEMP 97.5–98.6; O2SAT 93–96
[2017-05-11] MEDS: AMPICILLIN-SULBACTAM INJ 3 GM in SODIUM CHLORIDE 0.9% INJ 100 ML IV SCH ×2 (05:09→08:53)
[2017-05-11] MEDS: RESP: ALBUTEROL 2.5 MG/IPRATROPIUM 0.5 MG NEB (SCH) INH ×3 (07:48→19:23)
[2017-05-11] MEDS: SODIUM CHLORIDE 0.9% FLUSH 10 ML FLUSH IV FLUSH SCH ×2 (08:53→21:00)
[2017-05-11] MEDS: LISINOPRIL 5 MG TAB PO SCH (08:53)
[2017-05-11] MEDS: DORZOLAMIDE 2% OPTH SOLN 200 DROP/10 ML BTLO EACH EYE SCH ×2 (08:53→21:12)
[2017-05-11] MEDS: INSULIN ASPART SUPPLEMENTAL SCALE SQ SCH ×4 (08:53→21:00)
[2017-05-11] MEDS: PANTOPRAZOLE SOD 40 MG DELAYED RELEASE TAB PO SCH (08:57)
--- NOTE | 2017-05-11 10:11 | HHI.FF ---
Face to Face Verification Diagnosis: (1) Weakness (2) Aspiration pneumonia Physical Therapy Order: Evaluate and Treat Occupational Therapy Order: Evaluate and Treat I have seen patient Morena Tello on 05/11/17. My clinical findings support the need for the requested home health care services because: Ltd mobility - disease progression Deconditioned w/ increased weakness I certify that my clinical findings support that this patient is homebound because: Unsteady gait/balance Angelo Quintanilla MD May 11, 2017 10:11
[2017-05-11] MEDS: LEVOFLOXACIN 750 MG TAB PO SCH (11:49)
[2017-05-11] MEDS: guaiFENesin SOLUTION 200 MG/10 ML CUP PO SCH ×2 (11:50→17:22)
--- NOTE | 2017-05-11 13:24 | HHI.PR ---
Subjective Remarks In general patient looks better than before she still coughing lots of thick brownish phlegm I discussed with the respiratory, nurse, physical therapist. Patient requested nebulizer and this won't be available until tomorrow per the director of casework department I think she will benefit for another day respiratory treatment, will admission next, will switch her to by mouth antibiotic and monitor as well as prednisone Objective Vitals Vital Signs Date Time Temp Pulse Resp B/P (MAP) Pulse Ox O2 Delivery O2 Flow Rate FiO2 05/11/17 12:00 98.0 88 18 139/70 (93) 93 05/11/17 11:03 94 Room Air 05/11/17 08:50 96 2.00 05/11/17 08:00 97.8 84 18 148/73 (98) 93 05/11/17 07:48 96 Nasal Cannula 2.00 05/11/17 04:00 97.5 87 18 170/71 (104) 93 05/11/17 00:00 97.7 95 18 176/77 (110) 94 05/10/17 20:05 94 Nasal Cannula 2.00 05/10/17 20:00 98.2 102 18 139/78 (98) 93 05/10/17 20:00 98.2 102 18 139/78 (98) 93 05/10/17 20:00 101 05/10/17 19:00 94 Nasal Cannula 2.00 05/10/17 18:38 95 Room Air 05/10/17 16:00 97.7 80 18 137/70 (92) 98 05/10/17 15:01 101 I/O 05/10/17 05/10/17 05/10/17 05/11/17 05/11/17 05/11/17 07:00 15:00 23:00 07:00 15:00 23:00 Intake Total 680 ml 100 ml 100 ml 0 ml Balance 680 ml 100 ml 100 ml 0 ml Intake Oral 480 ml 0 ml IV Total 200 ml 100 ml 100 ml # Voids 5 10 4 Result Diagram: 05/09/17 0647 05/08/17 0650 Objective Remarks GENERAL: This is a well-nourished, well-developed patient, in no apparent distress. CARDIOVASCULAR: Regular rate and rhythm without murmurs, gallops, or rubs. RESPIRATORY: Significant bilateral basilar crackles with wheezes GASTROINTESTINAL: Abdomen soft, non-tender, nondistended. Normal active bowel sounds MUSCULOSKELETAL: Extremities without clubbing, cyanosis, or edema. NEURO: Alert & Oriented x4 to person, place, time, situation. Moves all ext x4 A/P Assessment and Plan 76 years old female with history of diabetes mellitus who was under colonoscopy procedure transferred to the hospital after she had sudden onset dyspnea and suspected aspiration Suspected aspiration episode with hypoxia following colonoscopy procedure -Chest x-rays was negative upon admission. Leukocytosis has been normalized. Continue Unasyn for now Laryngitis, worsening voice hoarseness -Appreciate ENT consultation, confirmed laryngitis due to acid secretion will take time to heal - starting PPI and consulting ST for swallow eval Hypertension: Patient is not on any antihypertensive medication will start low- dose 5 mg lisinopril and monitor blood pressure Diabetes mellitus: Hold sitagliptin, Accu-Chek with insulin sliding scale DVT prophylaxis with SCD and Lovenox 05/11: Still having lots of thick brownish secretions and cough, will admission next, switch antibiotic to by mouth Levaquin, prednisone by mouth, discussed with nurse director of casework department and the respiratory will defer discharge till tomorrow hopefully patient will be stable enough Discharge Planning In a.m. after passing home O2 walking test, director of casework department working on nebulizer Angelo Quintanilla MD May 11, 2017 13:24
[2017-05-11] MEDS ORDERED: NEBULIZER1 MI1 (17:00)
--- NOTE | 2017-05-11 17:02 | HHI.DS ---
Discharge Summary Admission Date May 08, 2017 at 09:57 Discharge Date: May 12, 2017 Admitting Diagnosis Possible aspiration pneumonia, hypoxemia (1) Weakness ICD Code: R53.1 - Weakness (2) Aspiration pneumonia ICD Code: J69.0 - Pneumonitis due to inhalation of food and vomit Diagnosis: Principal Procedures None Brief History - From Admission 76 years old female with history of fibromyalgia diabetes mellitus who followed by her GI doctor Dr. Echevarria , was having a colonoscopy during which or right after she was found to have extensive oral secretion there were trying to suction in the OR however patient went into coughing spells short of breath and hypoxia. Patient told me when she was leaving the operating room her face her left shoulder was full of snot and secretion. Patient brought to the hospital with suspect of aspiration started on breathing treatment and oxygen her oxygenation went below 88. Patient reported having cold symptoms 2 weeks ago however denied any fever chest pain abdominal pain dysuria urgency or frequency. She is looks to be stable on nasal cannula right now, chest x-ray in the ED showed normal lungs. Patient started on Unasyn after given a dose of Levaquin in ED CBC/BMP: 05/09/17 0647 05/08/17 0650 Significant Findings Laboratory Tests Test 05/09/17 06:47 Neutrophils (%) (Auto) 77.3 % (16.0-70.0) Imaging Last Impressions Chest X-Ray 05/07/17 0219 Signed Impressions: Service Date/Time: Sunday, May 07, 2017 18:06 - CONCLUSION: The lungs are clear. Harman Workman MD PE at Discharge GENERAL: This is a well-nourished, well-developed patient, in no apparent distress. CARDIOVASCULAR: Regular rate and rhythm without murmurs, gallops, or rubs. RESPIRATORY: Significant bilateral basilar crackles with wheezes GASTROINTESTINAL: Abdomen soft, non-tender, nondistended. Normal active bowel sounds MUSCULOSKELETAL: Extremities without clubbing, cyanosis, or edema. NEURO: Alert & Oriented x4 to person, place, time, situation. Moves all ext x4 Hospital Course 76 years old female admitted with aspiration episodes and aspiration pneumonia, laryngitis and hoarseness of the voice ENT consulted as well as swallow eval has been done iv antibiotic Solu-Medrol DuoNeb has been provided as well as Mucinex, patient slowly improved, and discharge home to follow up as an outpatient PCP in one week On day of discharge Fiqv-vs-axve encounter performed with the patient on discharge day, as well as physical exam, summary of hospitalization course and postdischarge plan has been D/W the patient. D/W nurse D/W family service caseworker. Discharge medications reviewed and printed and signed, post discharge follow up visit with PCP and other specialist as well as Brief hospital course and discharge summary has been placed. Pt Condition on Discharge: Fair Discharge Disposition: Disch w/ Home Health Serv Discharge Time: > 30 minutes Discharge Instructions DIET: Follow Instructions for: Heart Healthy Diet Speech Therapy-Diet Recommends: Regular Activities you can perform: Regular-No Restrictions, See Additionl Instruction Other Activity Instructions: Per PT Follow up Referrals: PCP Follow-up - 2-3 Days with Brian Faria DO New Medications: Dextromethorphan-Guaifenesin (Mucinex DM) 30-600 Mg Tab 1 TAB PO BID PRN for CHEST CONGESTION AND/OR COUGH for 30 Days, #60 TAB 0 Refills Levofloxacin (Levaquin) 750 Mg Tablet 750 MG PO DAILY for Infection, #5 TAB 0 Refills Nebulizer (Nebulizer) 1 Mis Mis EA .XX DIRECTED for Breathing Treatment, #1 0 Refills Prednisone (21) 5 mg tab Dose Pack (Prednisone (21) 5 mg tab Dose Pack) 5 Mg Dspk 5 MG PO DIRECTED for Inflammation, #1 DSPK 0 Refills Lisinopril (Lisinopril) 5 Mg Tab 5 MG PO DAILY for htn, #30 TAB [Albuterol-Ipratropium Neb] () 1 AMPULE NEBU 1 AMPULE INH Q4HR NEB PRN for SHORTNESS OF BREATH, #180 AMPULE Continued Medications: Dorzolamide Opth Drops (Dorzolamide Opth Drops) 2% Soln 1 DROP EACH EYE BID for Glaucoma, #1 BOTTLE 0 Refills Latanoprost Opth Drops (Latanoprost Opth Drops) 0.005% Drops 1 DROP EACH EYE HS for Glaucoma, #2.5 ML 0 Refills Refrigerate until opened. Sitagliptin (Januvia) 100 Mg Tab 100 MG PO DAILY for Blood Sugar Management, #30 TAB 0 Refills Angelo Quintanilla MD May 11, 2017 17:02 Omar Aly DO May 12, 2017 10:47
[2017-05-11] MEDS: ENOXAPARIN SODIUM 40 MG/0.4 ML SYRINGE SQ SCH ×2 (21:00→21:13)
[2017-05-11] MEDS: LATANOPROST 0.005% OPHT SOLN 2.5 ML BTL EACH EYE SCH (21:12)
[2017-05-11] MEDS: predniSONE 20 MG TAB PO SCH (21:13)
[2017-05-11 21:14] LABS: BICARBONATE 24.9 MEQ/L (21.0-32.0); CALCIUM 8.4 MG/DL (8.5-10.1)
[2017-05-11 21:18] LABS: CREATININE 1.1 MG/DL (0.50-1.00)
[2017-05-11] MEDS ORDERED: POTASSIUM CHLORIDE 25 MEQ EFFERVESCENT TAB PO ONE (23:30)
[2017-05-12] VITALS: BP 151/65; PULSE 82; RESP 18; TEMP 97.9; O2SAT 95
[2017-05-12 04:00] VITALS: BP 184/81; PULSE 83; RESP 18; TEMP 97.8; O2SAT 93
[2017-05-12] MEDS: RESP: ALBUTEROL 2.5 MG/IPRATROPIUM 0.5 MG NEB (SCH) INH (07:29)
[2017-05-12 07:33] VITALS: O2SAT 93
[2017-05-12 07:50] VITALS: BP 151/78; PULSE 112; RESP 20; TEMP 96.3; O2SAT 92
[2017-05-12 08:00] VITALS: PULSE 121
[2017-05-12] MEDS: DORZOLAMIDE 2% OPTH SOLN 200 DROP/10 ML BTLO EACH EYE SCH (08:25)
[2017-05-12] MEDS: INSULIN ASPART SUPPLEMENTAL SCALE SQ SCH (08:25)
[2017-05-12] MEDS: LISINOPRIL 5 MG TAB PO SCH (09:00)
[2017-05-12] MEDS: SODIUM CHLORIDE 0.9% FLUSH 10 ML FLUSH IV FLUSH SCH (09:00)
[2017-05-12] MEDS: PANTOPRAZOLE SOD 40 MG DELAYED RELEASE TAB PO SCH (09:00)
[2017-05-12] MEDS: predniSONE 20 MG TAB PO SCH (09:13)
[2017-05-12] MEDS: guaiFENesin SOLUTION 200 MG/10 ML CUP PO SCH (09:13)
[2017-05-12] MEDS: LEVOFLOXACIN 750 MG TAB PO SCH (09:13)
[2017-05-12] MEDS ORDERED: HUMIBIDDM PO (10:32)
[2017-05-12] MEDS ORDERED: Albuterol-Ipratropium Neb INH (10:32)
--- NOTE | 2017-05-12 10:46 | HHI.PR ---
Subjective Remarks 76 years old female with history of fibromyalgia diabetes mellitus who followed by her GI doctor Dr. Echevarria , was having a colonoscopy during which or right after she was found to have extensive oral secretion there were trying to suction in the OR however patient went into coughing spells short of breath and hypoxia. Patient told me when she was leaving the operating room her face her left shoulder was full of snot and secretion. Patient brought to the hospital with suspect of aspiration started on breathing treatment and oxygen her oxygenation went below 88. Patient reported having cold symptoms 2 weeks ago however denied any fever chest pain abdominal pain dysuria urgency or frequency. She is looks to be stable on nasal cannula right now, chest x-ray in the ED showed normal lungs. Patient started on Unasyn after given a dose of Levaquin in ED 05-11 WAS DCED BY MY COLLEAGUE 05-12 SOME COUGH C SET UP DC TO HOME TODAY ON PO ANTIBIOTICS AND PO STEROIDS AND NEB TREATMENTS COMPLAINING OF HEMORRHOID BLEEDING- INSTRUCTED TO CALL GI WHO DID PROCEDURE LAST WEEK Objective Vitals Vital Signs Date Time Temp Pulse Resp B/P (MAP) Pulse Ox O2 Delivery O2 Flow Rate FiO2 05/12/17 08:00 121 05/12/17 07:50 96.3 112 20 151/78 (102) 92 05/12/17 07:33 93 21 05/12/17 07:00 92 Room Air 05/12/17 04:00 97.8 83 18 184/81 (115) 93 05/12/17 00:00 97.9 82 18 151/65 (93) 95 05/11/17 20:00 98.0 87 17 160/69 (99) 93 05/11/17 20:00 73 05/11/17 19:23 95 21 05/11/17 19:00 95 Room Air 05/11/17 17:27 92 Room Air 05/11/17 16:00 98.6 101 18 145/85 (105) 96 05/11/17 15:01 98 05/11/17 12:00 98.0 88 18 139/70 (93) 93 05/11/17 11:03 94 Room Air I/O 05/11/17 05/11/17 05/11/17 05/12/17 05/12/17 05/12/17 07:00 15:00 23:00 07:00 15:00 23:00 Intake Total 0 ml 600 ml Balance 0 ml 600 ml Intake Oral 0 ml 600 ml # Voids 4 4 3 Result Diagram: 05/09/17 0647 05/11/172053 Other Results Laboratory Tests Test 05/11/17 20:54 Blood Urea Nitrogen 16 MG/DL Creatinine 1.10 MG/DL Random Glucose 191 MG/DL Calcium Level 8.4 MG/DL Sodium Level 139 MEQ/L Potassium Level 3.2 MEQ/L Chloride Level 104 MEQ/L Carbon Dioxide Level 24.9 MEQ/L Anion Gap 10 MEQ/L Estimat Glomerular Filtration Rate 48 ML/MIN Imaging Last Impressions Chest X-Ray 05/07/17 2929 Signed Impressions: Service Date/Time: Sunday, May 07, 2017 18:06 - CONCLUSION: The lungs are clear. Harman Workman MD Objective Remarks GENERAL: Awake alert oriented 3 talkative and cooperative SKIN: Warm and dry. HEAD: Atraumatic. Normocephalic. EYES: Pupils equal and round. No scleral icterus. No injection or drainage. Extraocular muscles intact ENT: No nasal bleeding or discharge. Mucous membranes pink and moist. Tongue is midline NECK: Trachea midline. No JVD. Supple CARDIOVASCULAR: Regular rate and rhythm. S1 and S2 no S3 or S4 RESPIRATORY: No accessory muscle use. Breath sounds equal bilaterally. Few scattered rhonchi GASTROINTESTINAL: Abdomen soft, non-tender, nondistended. Hepatic and splenic margins not palpable. MUSCULOSKELETAL: Extremities without clubbing, cyanosis, or edema. No obvious deformities. NEUROLOGICAL: Awake and alert. No obvious cranial nerve deficits. Motor grossly within normal limits. Five out of 5 muscle strength in the arms and legs. Normal speech. PSYCHIATRIC: Appropriate mood and affect; insight and judgment normal. Procedures None Medications and IVs Current Medications Albuterol/ Ipratropium (Duoneb Neb) 1 ampule Q15M INH Last administered on 05/07at 18:43; Start 05/07/17 at 18:30; Stop 05/07/17 at 18:46; Status DC Sodium Chloride 500 ml @ 500 mls/hr BOLUS ONCE IV Last administered on at 19:35; Start 05/07/17 at 19:00; Stop 05/07/17 at 19:34; Status DC Ceftriaxone Sodium 1000 mg/ Sodium Chloride 100 ml @ 200 mls/hr ONCE ONCE IV Last administered on 05/07/17at 19:35; Start 05/07/17 at 19:00; Stop 05/07/17 at 19:29; Status DC Azithromycin (Zithromax) 500 mg ONCE ONCE PO Last administered on 05/07/17at 20 :29; Start 05/07/17 at 19:00; Stop 05/07/17 at 19:02; Status DC Sodium Chloride (NS Flush) 2 ml UNSCH PRN IV FLUSH FLUSH AFTER USING IV ACCESS Last administered on 05/11/17 05:10; Start 05/07/17 at 19:30 Sodium Chloride (NS Flush) 2 ml BID IV FLUSH Last administered on 05/10/17 22: 58; Start 05/07/17 at 21:00 Albuterol/ Ipratropium (Duoneb Neb) 1 ampule Q6HR NEB INH Last administered on 05/08/17 03:56; Start 05/07/17 at 22:00; Stop 05/08/17 at 07:36; Status DC Albuterol/ Ipratropium (Duoneb Neb) 1 ampule Q4HR NEB PRN INH SHORTNESS OF BREATH Last administered on 05/10/17at 04:56; Start 05/07/17 at 19:30 Enoxaparin Sodium (Lovenox Inj) 40 mg Q24H SQ Last administered on 05/08/17at 21 :10; Start 05/07/17 at 21:00 Dextrose (D50w (Vial) Inj) 50 ml UNSCH PRN IV PUSH HYPOGLYCEMIA-SEE COMMENTS; Start 05/07/17 at 19:30 Glucagon (Glucagon Inj) 1 mg UNSCH PRN OTHER HYPOGLYCEMIA-SEE COMMENTS; Start 05/07/17 at 19:30 Insulin Aspart (NovoLOG SUPPLEMENTAL SCALE) 1 ACHS SLIDING SCALE SQ Last administered on 05/12/17at 08:25; Start 05/07/17 at 21:00 Dorzolamide HCl (Trusopt 2% Opth Soln) 1 drop BID EACH EYE Last administered on 05/12/17at 08:25; Start 05/07/17 at 21:00 Latanoprost (Xalatan 0.005% Opth Soln) 1 drop HS EACH EYE Last administered on 05/11/17at 21:12; Start 05/07/17 at 21:00 Sitagliptin Phosphate (Januvia) 100 mg DAILY PO ; Start 05/08/17 at 09:00; Status Future Hold Ampicillin Sodium/ Sulbactam Sodium 3 gm/Sodium Chloride 100 ml @ 200 mls/hr Q6H IV Last administered on 05/11/17at 05:09; Start 05/07/17 at 21:00; Stop at 10:31; Status DC Albuterol/ Ipratropium (Duoneb Neb) 1 ampule Q6HR WHILE AWAKE NEB INH Last administered on 05/12/17at 07:29; Start 05/08/17 at 08:00; Stop 05/12/17 at 07:59 ; Status DC Pantoprazole Sodium (Protonix) 40 mg DAILY PO Last administered on 05/11/17at 08 :57; Start 05/09/17 at 11:00 Lisinopril (Prinivil) 5 mg DAILY PO ; Start 05/10/17 at 10:00 Methylprednisolone Sodium Succinate (SoluMEDROL INJ) 125 mg ONCE ONCE IV PUSH Last administered on 05/10/17at 12:50; Start 05/10/17 at 13:00; Stop 05/10/17 at 13:01; Status DC Prednisone (Deltasone) 40 mg BID PO Last administered on 05/12/17at 09:13; Start 05/11/17 at 21:00 Levofloxacin (Levaquin) 750 mg DAILY PO Last administered on 05/12/17at 09:13; Start 05/11/17 at 11:00 Guaifenesin (Robitussin Liq) 200 mg TID PO Last administered on 05/12/17at 09:13 ; Start 05/11/17 at 13:00 Potassium Bicarb/ Potassium Chloride (K-Lyte Cl Eff) 50 meq ONCE ONCE PO Last administered on 05/11/17at 23:48; Start 05/11/17 at 23:30; Stop 05/11/17 at 23:31; Status DC A/P Problem List: (1) Weakness ICD Code: R53.1 - Weakness (2) Aspiration pneumonia ICD Code: J69.0 - Pneumonitis due to inhalation of food and vomit Assessment and Plan 76 years old female with history of diabetes mellitus who was under colonoscopy procedure transferred to the hospital after she had sudden onset dyspnea and suspected aspiration Suspected aspiration episode with hypoxia following colonoscopy procedure -Chest x-rays was negative upon admission. Leukocytosis has been normalized. Switch to by mouth medication Laryngitis, worsening voice hoarseness -Appreciate ENT consultation, confirmed laryngitis due to acid secretion will take time to heal - starting PPI and consulting ST for swallow eval Hypertension: Patient is not on any antihypertensive medication will start low- dose 5 mg lisinopril and monitor blood pressure Diabetes mellitus: Hold sitagliptin, Accu-Chek with insulin sliding scale DVT prophylaxis with SCD and Lovenox 05/11: Still having lots of thick brownish secretions and cough, will admission next, switch antibiotic to by mouth Levaquin, prednisone by mouth, discussed with nurse patient case coordinator and the respiratory will defer discharge till tomorrow hopefully patient will be stable enough will add Mucinex and nebulizer treatment Discharge Planning In a.m. after passing home O2 walking test, patient case coordinator working on nebulizer Can be discharged to home today See the discharge summary Discharge Planning Discharge to home today Omar Aly DO May 12, 2017 10:46
== END 2017-05-12 11:00 | disposition home health service (06) | DRG 205 ==
LOC: PHED 17:16 → PHEDA 19:25 → PH3A 20:43 → OBSVTOIN 05-08 09:57
PROVIDERS: ADMIT Hospitalist; ATTEND Hospitalist
DX: J95.88 Other intraoperative complications of respiratory system, not elsewhere classified (principal); J69.0 Pneumonitis due to inhalation of food and vomit; E11.9 Type 2 diabetes mellitus without complications; R06.00 Dyspnea, unspecified; I10 Essential (primary) hypertension; Y84.9 Medical procedure, unspecified as the cause of abnormal reaction of the patient, or of later complication, without mention of misadventure at the time of the procedure; M79.7 Fibromyalgia; K21.9 Gastro-esophageal reflux disease without esophagitis; H40.9 Unspecified glaucoma; R09.02 Hypoxemia; M81.0 Age-related osteoporosis without current pathological fracture; H26.9 Unspecified cataract; R00.0 Tachycardia, unspecified; R49.0 Dysphonia; J04.0 Acute laryngitis; K64.9 Unspecified hemorrhoids; Y92.530 Ambulatory surgery center as the place of occurrence of the external cause
CPT/HCPCS: 36600; 71045; 80048; 82805; 82948; 83880; 84484; 85025; 94150; 94618; 94640; 94664; 96365; 96372; G0378; J0295; J0696; J1650; J1815; J2930; J7040; J7512